=== PATIENT | female | born 1960 | race Two or more races ===

== ENCOUNTER → 2019-01-30 | Outpatient (CLI) | payer MEDICAID ==
[2019-01-30 15:39] LABS: APPEARANCE,URINE CLEAR; BILIRUBIN, URINE NEGATIVE (NEGATIVE); COLOR,URINE PALE YELLOW; GLUCOSE, URINE (UA) NEGATIVE (NEGATIVE); KETONES,URINE NEGATIVE (NEGATIVE); LEUKOCYTE ESTERASE ,URINE 3+ (NEGATIVE); NITRITE,URINE NEGATIVE (NEGATIVE); PH,URINE 6 (4.5-8.0); PROTEIN,URINE NEGATIVE (NEGATIVE); UROBILINOGEN,URINE NORMAL MG/DL (0.0-1.0)
[2019-01-30 15:42] LABS: BASOPHILS % (AUTO) 1.1 % (0.0-2.0); EOSINOPHILS % (AUTO) 1.5 % (0.0-3.0); HEMATOCRIT 38.6 % (37.0-47.0); HEMOGLOBIN 13.4 G/DL (12.0-16.0); LYMPHOCYTES % (AUTO) 33.8 % (20.0-45.0); MEAN CORPUSCULAR VOLUME 88 FL (80-99); NEUTROPHILS % (AUTO) 56.6 % (45.0-75.0); PLATELET COUNT 223 K/UL (150-450); RED CELL DISTRIBUTION WIDTH 10.6 % (11.6-14.8); WHITE BLOOD COUNT 5.8 K/UL (4.8-10.8)
[2019-01-30 16:02] LABS: ANION GAP 8 mmol/L (5-15); BLOOD UREA NITROGEN 17 mg/dL (7-18); CALCIUM 8.8 MG/DL (8.5-10.1); CARBON DIOXIDE 30 MMOL/L (21-32); CHLORIDE 102 MMOL/L (98-107); CREATININE 0.7 MG/DL (0.55-1.30); POTASSIUM 4.1 MMOL/L (3.5-5.1); SODIUM 140 MMOL/L (136-145)
--- NOTE | 2019-01-31 18:26 | Cardiology Report ---
APPROVED REPORT EKG Measurement Heart [id number] Normal sinus rhythm Normal ECG
== END | disposition home or self-care (01) ==
LOC: LAB 15:02
DX: C50.919 Malignant neoplasm of unspecified site of unspecified female breast (principal)
CPT/HCPCS: 36415; 80048; 81001; 85025; 85610; 85730; 87086; 93005

== ENCOUNTER 2019-02-21 09:36 | Inpatient (IN) | payer MEDICAID ==
--- NOTE | 2019-02-20 18:00 | Pre-op HX & Phy Repo 2 SIG ---
DATE OF ADMISSION: 02/21/2019 SCHEDULED FOR SURGERY: 02/21/2019 HISTORY OF PRESENT ILLNESS: The patient is a 58-year-old female in overall stable health, who presented in December of 2018 with a one month history of right breast mass and pain in the upper inner quadrant of the right breast. Mammogram revealed a large area of irregular calcifications spanning 4.7 cm in the central right posterior extending toward the subareolar tissues. Ultrasound revealed in the right breast at 2 o'clock, 3 cm from the nipple, a 4.3 x 2.5 x 0.8 cm mass. Core biopsy revealed invasive ductal carcinoma, poorly differentiated and ductal carcinoma in situ. The patient was estrogen receptor positive, progesterone receptor negative, HER2 negative, Ki-67 was high at 80%. MRI of the breast revealed extensive disease filling the upper inner quadrant of the right breast coming to within 5 mm from the nipple areolar complex. The patient was advised that the option of partial mastectomy and right axillary sentinel lymph node biopsy would have a significant risk of leaving positive margins and that is a modified radical mastectomy may be needed. The patient was seen in consultation by Oncology who recommended proceeding as a next step with the surgery and that the patient wished to proceed and was agreeable to mastectomy. Review of all of the x-rays indicated the need for right modified radical mastectomy. MEDICATIONS: Phenytoin 100 mg 4 mL oral suspension, omeprazole. ALLERGIES: None. OPERATIONS: None. REVIEW OF SYSTEMS: 6, para 6. Last menstrual period in 2012. PHYSICAL EXAMINATION: GENERAL: The patient is 5 feet 6 inches, 158 pounds. HEENT: Within normal limits. LUNGS: Clear. HEART: Regular rhythm. BREASTS: Small. There is a 5 cm mass filling the upper inner quadrant of the right breast near the periphery and extending to the nipple-areolar complex. ABDOMEN: Soft. PELVIC AND RECTAL: Per primary care. EXTREMITIES: Without edema. NEUROLOGIC: Physiologic. IMPRESSION: Invasive ductal carcinoma, poorly differentiated and ductal carcinoma in situ, right breast, extensive; estrogen receptor positive; progesterone receptor negative; HER2 negative; KI-67 80%. PLAN: Full discussion has been had with the patient regarding the nature of her condition, the nature of the surgery, indications, alternatives, options, and risks. She agrees to proceed with mastectomy including the risks of bleeding, infection, flap necrosis, need for additional procedures based on final pathology, the inclusion of lymph node biopsy and limited dissection with a mastectomy, need for drains, etc. All questions have been answered. She understands and agrees to proceed. Kael Ruiz M.D. DR: DOROTHY JOB#: [id number] CC:
[2019-02-21] VITALS (12 sets, daily range): BP systolic 98–127; BP diastolic 57–77
[~2019-02-21] VITALS: Ht 160 cm; Wt 70.3 kg
[2019-02-21 10:12] LABS: APPEARANCE,URINE CLEAR; BILIRUBIN, URINE NEGATIVE (NEGATIVE); COLOR,URINE PALE YELLOW; GLUCOSE, URINE (UA) NEGATIVE (NEGATIVE); KETONES,URINE NEGATIVE (NEGATIVE); LEUKOCYTE ESTERASE ,URINE 3+ (NEGATIVE); NITRITE,URINE NEGATIVE (NEGATIVE); PH,URINE 6.5 (4.5-8.0); PROTEIN,URINE NEGATIVE (NEGATIVE); UROBILINOGEN,URINE NORMAL MG/DL (0.0-1.0)
[2019-02-21] MEDS ORDERED: OMEPRAZOLE20 M2 ORAL (11:10)
[2019-02-21] MEDS ORDERED: BACTRIM DS TAB1 EAC1 ORAL (11:10)
[2019-02-21] MEDS ORDERED: PHENYTOIN SODI100 MG ORAL (11:10)
--- NOTE | 2019-02-21 11:47 | Pre-Procedure Note/Attestation ---
Pre-Procedure Note/Attestation Complete Prior to Procedure Planned Procedure: right Procedure Narrative: right modified radical mastectomy Indications for Procedure Pre-Operative Diagnosis: carcinoma right breast Attestation I attest that I discussed the nature of the procedure; its benefits; risks and complications; and alternatives (and the risks and benefits of such alternatives ), prior to the procedure, with the patient (or the patient's legal claim service representative). I attest that, if there was a reasonable possibility of needing a blood transfusion, the patient (or the patient's legal claim service representative) was given the [facility] standardized written summary, pursuant to the [place] Blood Safety Act ([place] Health and Safety Code # 1645, as amended). I attest that I re-evaluated the patient just prior to the surgery and that there has been no change in the patient's H&P, except as documented below:none Kael Ruiz MD Feb 21, 2019 11:47
[2019-02-21] MEDS ORDERED: Midazolam 2mg/2ml Inj ONE (12:02)
[2019-02-21] MEDS ORDERED: Lidocaine 1% MPF 10mg/ml 5ml ONE (12:02)
[2019-02-21] MEDS ORDERED: fentaNYL 100 mcg/2 mL IV ONE (12:02)
[2019-02-21] MEDS ORDERED: Propofol 200mg/20ml IV ONE (12:02)
[2019-02-21] MEDS ORDERED: Lidocaine 1% 10mg/ml/Epi 0.005mg/ml 30ml vial INJ ONE (12:03)
[2019-02-21] MEDS ORDERED: Bupivacaine w/Epi 0.5% 30ml Vial INJ ONE (12:03)
[2019-02-21] MEDS ORDERED: Zemuron 50mg/5ml Inj IV ONE (12:04)
[2019-02-21] MEDS ORDERED: Succinylcholine 20mg/ml 10ml vial ONE (12:04)
[2019-02-21] MEDS ORDERED: Neostigmine 1mg/ml 10ml Inj ONE (12:30)
[2019-02-21] MEDS ORDERED: Sterile Water Irrig 1000ml IRRIG ONE ×2 (12:30→13:00)
[2019-02-21] MEDS ORDERED: LR 1000ml ONE (12:30)
--- NOTE | 2019-02-21 12:44 | Anethesia Preoperative Eval ---
Anesthesia Pre-op PMH/ROS General Date of Evaluation: Feb 21, 2019 Time of Evaluation: 12:42 Anesthesiologist: Demetris ASA Score: ASA 2 Mallampati Score Class I : Soft palate, uvula, fauces, pillars visible Class II: Soft palate, uvula, fauces visible Class III: Soft palate, base of uvula visible Class IV: Only hard plate visible Mallampati Classification: Class II Surgeon: Joseph Diagnosis: R breast CA Surgical Procedure: R mastectomy Anesthesia History: none Family History: no anesthesia problems Allergies: Coded Allergies: No Known Allergies (Unverified , 02/21/19) Medications: see eMAR Patient NPO?: Yes Past Medical History Cardiovascular: Denies: HTN, CAD, RI, valve dz, arrhythmia, other Pulmonary: Denies: asthma, COPD, MALLORY, other Gastrointestinal/Genitourinary: Reports: GERD; Denies: CRI, ESRD, other Neurologic/Psychiatric: Reports: other - h/o seizers stable on dilantyn; Denies: dementia, CVA, depression/anxiety, TIA Endocrine: Denies: DM, hypothyroidism, steroids, other HEENT: Denies: cataract (L), cataract (R), glaucoma, COMANCHE (L), COMANCHE (R), other Hematology/Immune: Denies: anemia, DVT, bleeding disorder, other Musculoskeletal/Integumentary: Denies: OA, RA, DJD, DDD, edema, other PMH Narrative: as above PSxH Narrative: C section hysterectomy, Anesthesia Pre-op Phys. Exam Physician Exam Last Vital Signs Date Time Temp Pulse Resp B/P (MAP) Pulse Ox O2 Delivery O2 Flow Rate FiO2 02/21/19 10:26 Room Air 02/21/19 10:19 97.8 69 18 127/77 98 Constitutional: NAD Neurologic: CN 2-12 intact Cardiovascular: RRR, no M/R/G Respiratory: CTA Gastrointestinal: S/NT/ND Airway Exam Mallampati Score: Class II MO: limited Neck: stiff ROM: limited Teeth: missing Dentures: no upper, no lower Anesthesia Pre-op A/P Labs see chart Studies Pre-op Studies: EKG - NSR Risk Assessment & Plan Assessment: ASA 2 Plan: GA with ETT Status Change Before Surgery: No Pre-Antibiotics Drug: Ancef 1gr. Given Within 1 Hr of Incision: Yes Time Given: 13:10 Krishan Willson MD Feb 21, 2019 12:44
[2019-02-21] MEDS ORDERED: Glycopyrrolate 0.2mg/ml 1ml Vial ONE (13:28)
[2019-02-21] MEDS ORDERED: Sodium Chloride 10ml vial INJ ONE (13:28)
[2019-02-21] MEDS ORDERED: Morphine Sulfate 10mg/ml Inj ONE (13:28)
[2019-02-21] MEDS ORDERED: Ketorolac 30mg Inj ONE (13:28)
[2019-02-21] MEDS ORDERED: LR 1000ml 1,000 ML IVLG SCH (13:35)
[2019-02-21] MEDS ORDERED: Hydromorphone 0.5mg/0.5ml inj IVP PRN (13:45)
[2019-02-21] MEDS ORDERED: Acetaminophen (Non formulary) 100 ML IV ONE (13:45)
[2019-02-21] MEDS ORDERED: Ketorolac 30mg Inj IV PRN (13:45)
[2019-02-21] MEDS ORDERED: Metoclopramide 10mg/2ml Inj IVP PRN (13:45)
[2019-02-21] MEDS ORDERED: HYDROmorphone 1mg/ml Carpuject SUBQ PRN (14:45)
--- NOTE | 2019-02-21 14:48 | Brief Operative Note ---
Immediate Post Operative Note Operative Note Pre-op Diagnosis: carcinoma right breast Procedure: right modified radical mastectomy Post-op Diagnosis: same Post-op Diagnosis: same as pre-op Findings: consistent w/pre-op dx studies Surgeon: antionette Anesthesiologist: velia Anesthesia: general Specimen: yes - right breast and axillary lymph node Complications: none Condition: stable Fluids: see anesthesia record Estimated Blood Loss: volume - 100cc Implant(s) used?: No Kael Ruiz MD Feb 21, 2019 14:48
--- NOTE | 2019-02-21 14:54 | Immediate Post-Op Evaluation ---
Immediate Post-Op Evalulation Immediate Post-Op Evalulation Procedure: R modified radical mastectomy Date of Evaluation: Feb 21, 2019 Time of Evaluation: 14:53 IV Fluids: 1000 Blood Products: none Estimated Blood Loss: 100 Urinary Output: none Blood Pressure Systolic: 113 Blood Pressure Diastolic: 61 Pulse Rate: 68 Respiratory Rate: 20 O2 Sat by Pulse Oximetry: 99 Temperature (Fahrenheit): 97.4 Pain Score (1-10): 1 Nausea: No Vomiting: No Complications none Patient Status: reacts, patent, extubated, none Hydration Status: adequate Krishan Willson MD Feb 21, 2019 14:54
--- NOTE | 2019-02-21 16:40 | NUR ---
NURSE NOTES: received pt from surgery. Received report MALACHI Hoyt. On room air. BP 110/67, WI 75, T 98.3, SpO2 98. Dressing intact on the surgical site with 2 YENNY draining dark red fluid. IV on UA 20g running lactate ringer. Family at the bedside. Belongings all accounted for. Orientation on the unit was given. Bed in the lowest and locked. Call light within reach. Will continue to monitor
[2019-02-21] MEDS: D5 1/2NS w/KCl 20mEq 1,000 ML IV SCH (18:38)
[2019-02-21] MEDS: ceFAZolin sod 1 GM in D5W 55 ML IV SCH (18:38)
--- NOTE | 2019-02-21 19:30 | NUR ---
NURSE NOTES: Received pt in bed, AOx4, Niuean speaking only, son at bedside used as business transformation manager. Denies any pain, no distress noted. S/P Right modified mastectomy, surgical dressing C/D/I, JPs x [address] draining serasangenous drainage. Side rails padded for seizure precaution. Bed in lowest position and locked, side rails up x 2, call light within reach. Will continue to monitor.
--- NOTE | 2019-02-21 19:59 | NUR ---
HAND-OFF: Report given to MALACHI Maravilla.
--- NOTE | 2019-02-21 20:00 | Operative Note - Dictated ---
DATE OF OPERATION: 02/21/2019 SURGEON: Kael Ruiz M.D. NUTRITION SERVICES ASSISTANT: None. ANESTHESIOLOGIST: Krishan Willson M.D. TYPE OF ANESTHESIA: General. PREOPERATIVE DIAGNOSIS: Invasive ductal carcinoma, right breast. POSTOPERATIVE DIAGNOSIS: Invasive ductal carcinoma, right breast. OPERATION PERFORMED: Right modified radical mastectomy. DESCRIPTION OF PROCEDURE: The patient was taken to the operating room and under general anesthesia with sequential compression device stockings in place, she was prepped and draped in usual fashion. A transversely oriented elliptical incision incorporating the nipple-areolar complex was made achieving hemostasis with cautery. Flaps were dissected to the sternum medially towards the clavicle superiorly, costal margin inferiorly, and latissimus dorsi laterally. The breast was resected from the chest wall using the Thunderbeat electrosurgical device and regular cautery for hemostasis. The lower level axillary dissection was performed with the Thunderbeat and then one additional para node was removed. The field was irrigated and hemostasis carefully achieved with cautery through separate stab incisions inferiorly. Two large flat Ramiro-Jasmine drains were placed, one onto the flaps and one into the axillae each sutured to the skin with 2-0 nylon skin suture. After ascertaining the hemostasis was secure, the incision was closed with interrupted 2-0 Vicryl deep dermal subcutaneous sutures followed by panchito. Dry sterile dressings were applied. Final sponge, needle counts were correct. The patient tolerated the procedure well, left the operating room in good condition. Pathology inspection revealed the margins to be satisfactory. Kael Ruiz M.D. DR: JAY JOB#: [id number] CC:
[2019-02-21] MEDS: HYDROcodone/Acetamin 5/325 tab ORAL PRN (22:35)
[2019-02-22] VITALS: BP 99/65
[2019-02-22] MEDS: ceFAZolin sod 1 GM in D5W 55 ML IV SCH (01:36)
[2019-02-22] MEDS: D5 1/2NS w/KCl 20mEq 1,000 ML IV SCH (03:51)
[2019-02-22 04:00] VITALS: BP 101/63
[2019-02-22 06:52] LABS: ANION GAP 8 mmol/L (5-15); BLOOD UREA NITROGEN 10 mg/dL (7-18); CALCIUM 8.6 MG/DL (8.5-10.1); CARBON DIOXIDE 25 MMOL/L (21-32); CHLORIDE 105 MMOL/L (98-107); CREATININE 0.7 MG/DL (0.55-1.30); POTASSIUM 4.1 MMOL/L (3.5-5.1); SODIUM 138 MMOL/L (136-145)
[2019-02-22 07:04] LABS: BASOPHILS % (AUTO) 0.5 % (0.0-2.0); EOSINOPHILS % (AUTO) 0.5 % (0.0-3.0); HEMATOCRIT 33.5 % (37.0-47.0); HEMOGLOBIN 11.4 G/DL (12.0-16.0); LYMPHOCYTES % (AUTO) 15.4 % (20.0-45.0); MEAN CORPUSCULAR VOLUME 90 FL (80-99); NEUTROPHILS % (AUTO) 77.6 % (45.0-75.0); PLATELET COUNT 159 K/UL (150-450); RED BLOOD COUNT 3.73 M/UL (4.20-5.40); RED CELL DISTRIBUTION WIDTH 11.3 % (11.6-14.8); WHITE BLOOD COUNT 6.6 K/UL (4.8-10.8)
--- NOTE | 2019-02-22 07:25 | NUR ---
HAND-OFF: Report given to MALACHI [place]. Pt in stable condition.
--- NOTE | 2019-02-22 07:30 | NUR ---
NURSE NOTES: Report received from Taiwo Griffin RN, rounds made. Patient Citizen Of [place] speaking, alert, oriented x4 calm. No distress on RA. Denies pain/NV. Right breast dressing CDI, x2 YENNY noted, with serosanguineous output. RUE CMS+, skin warm, wiggles, pulses palpable. IVF (D5 1/2 + 20KCL at 100 ml/hr) infusing to LFA, site asymptomatic. Bilateral SCDs on. Call light in reach, bed in lowest position, will continue to monitor.
--- NOTE | 2019-02-22 07:41 | NUR ---
HAND-OFF: Report given to MALACHI Williamson. Pt in stable condition.
[2019-02-22 08:00] VITALS: BP 94/62
--- NOTE | 2019-02-22 09:33 | 48 Hour Post Anesthesia Eval ---
Post Anesthesia Evaluation Procedure: R modified radical mastectomy Date of Evaluation: Feb 22, 2019 Time of Evaluation: 09:29 Blood Pressure Systolic: 106 0: 52 Pulse Rate: 64 Respiratory Rate: 20 Temperature (Fahrenheit): 97.6 O2 Sat by Pulse Oximetry: 98 Airway: patent Nausea: No Vomiting: No Pain Intensity: 2 Hydration Status: adequate Cardiopulmonary Status: stable Mental Status/LOC: patient returned to baseline Follow-up Care/Observations: n/a Post-Anesthesia Complications: none Follow-up care needed: ready to discharge Krishan Willson MD Feb 22, 2019 09:32
[2019-02-22 12:00] VITALS: BP 112/71
--- NOTE | 2019-02-22 12:17 | General Progress Note ---
Progress Note Progress Note AVSS Required Dilaudid SQ overnight. Eating and ambulating this AM Right mastectomy incision clean YENNY drains 20+35cc sanguinous overnight Imp. Stable Plan: teach patient care of YENNY drains anticipate discharge tomorrow Kael Ruiz MD Feb 22, 2019 12:17
[2019-02-22] MEDS: HYDROcodone/Acetamin 5/325 tab ORAL PRN ×2 (14:04→20:47)
[2019-02-22 16:00] VITALS: BP 108/66
--- NOTE | 2019-02-22 18:00 | NUR ---
NURSE NOTES: Encouraged IS throughout shift, patient demonstrated, needs further reinforcement. Instructed/demonstrated on YENNY care, emptying and measuring output. Son at bedside. Patient verbalized understanding. Dressing changed by Dr. Ruiz today, remains CDI.
--- NOTE | 2019-02-22 19:45 | NUR ---
NURSE NOTES: Received report from MALACHI Williamson. Patient ambulating in hallway with family. Steady gait, no dizziness.
--- NOTE | 2019-02-22 19:50 | NUR ---
HAND-OFF: Report given to Yumi LY. YENNY Outputs: 1=40 ml 2=40 ml
[2019-02-22 20:00] VITALS: BP 109/61
--- NOTE | 2019-02-22 20:30 | NUR ---
NURSE NOTES: Patient in bed, bed in low position, locked, side rails up x2, call light within reach. Patient states has some pain after activity, will medicate as ordered. Right chest dressing dry and intact, YENNY x2 patent, draining serousanguineous fluid. Reviewed care of JPs with patient. Patient verbalizes understanding.
[2019-02-22] MEDS: Phenytoin 100mg cap ORAL SCH (22:43)
[2019-02-23] VITALS: BP 99/58
[2019-02-23 04:00] VITALS: BP 103/63
--- NOTE | 2019-02-23 06:15 | NUR ---
NURSE NOTES: Patient instructed in emptying, measuring and recording of YENNY output, returned demonstration. Needs reinforcement. JP1: 30 cc JP2: 30 cc Patient denies pain at this time. Has refused SCDs. Encouraged to call as needed, no distress noted.
--- NOTE | 2019-02-23 07:05 | NUR ---
NURSE NOTES: Report received from Yumi LY, rounds made. Patient sleeping in semi-fowlers position in bed. No distress on RA. YENNY x2 in place. LFA heplock intact. Bilateral SCDs off. Seizure pads in place. Plans for DC today. Call light in reach, bed in lowest position, will continue to monitor.
--- NOTE | 2019-02-23 07:09 | NUR ---
HAND-OFF: Report given to MALACHI Williamson. No distress noted.
[2019-02-23 08:00] VITALS: BP 108/71
--- NOTE | 2019-02-23 08:15 | NUR ---
NURSE NOTES: Patient up ambulating in halls, gait steady. Denies need for pain medication. Will continue to monitor.
[2019-02-23] MEDS: Phenytoin 100mg cap ORAL SCH (10:06)
--- NOTE | 2019-02-23 10:36 | General Progress Note ---
Progress Note Progress Note aVSS doing well. Able to care for YENNY drains incision clean JPs 30+30 overnight Imp. Stable Plan: discharge f/u office 02/26 Rx [place] #[id number] Kael Ruiz MD Feb 23, 2019 10:35
[2019-02-23] MEDS ORDERED: NORCO 5-325 TA1 EACH ORAL (11:44)
[2019-02-23 12:00] VITALS: BP 132/83
--- NOTE | 2019-02-23 12:13 | NUR ---
NURSE NOTES: Discharge instructions and prescription x1 reviewed with patient and family (translated by family). Patient demonstrated proper handwashing prior and after, YENNY care, emptying, compressing bulbs/closing, reading and recording output, dressing change. Supplies provided: 4x4 gauze, paper tape, basin, specimen cups labeled x2 and recording paper for outputs. IV heplock discontinued, no active bleeding. All belongings, discharge instructions, supplies and prescription x1 sent home with patient. Ambulated down to lobby with family and Merlin KAUR, in stable condition. Discharged home at 1213.
--- NOTE | 2019-02-25 12:18 | Discharge Summary ---
Discharge Summary Hospital Course Date of Admission Feb 21, 2019 at 17:27 Date of Discharge Feb 23, 2019 at 12:30 Admitting Diagnosis Right breast carcinoma Reason for Hospitalization: Elective surgery HPI Evon soto a 58 year old female was admitted on Feb 21, 2019 at 17:27 for Carcinoma Right Breast 58-year-old female in overall stable health, presented in December of 2018 with a one month history of right breast mass and pain in the upper inner quadrant of the right breast. Mammogram revealed a large area of irregular calcifications spanning 4.7 cm in the central right posterior extending toward the subareolar tissues. Ultrasound revealed in the right breast at 2 o'clock, 3 cm from the nipple, a 4.3 x 2.5 x 0.8 cm mass. Core biopsy revealed invasive ductal carcinoma, poorly differentiated and ductal carcinoma in situ. The patient was estrogen receptor positive, progesterone receptor negative, HER2 negative, Ki-67 was high at 80%. MRI of the breast revealed extensive disease filling the upper inner quadrant of the right breast coming to within 5 mm from the nipple areolar complex. The patient was advised that the option of partial mastectomy and right axillary sentinel lymph node biopsy would have a significant risk of leaving positive margins and that a modified radical mastectomy may be needed. The patient was seen in consultation by Oncologist who recommended proceeding as a next step with the surgery and that the patient wished to proceed and was agreeable to mastectomy. Review of all of images indicated the need for right modified radical mastectomy. Procedures by Dr Ruiz 02/21/19 s/p Right modified radical mastectomy Hospital Course status post surgery course of recovery uneventful initially IV fluids s/p perioperative antibiotics right mastectomy incision clean two YENNY drain with serosanguineous drainage, output was closely monitored patient was taught how to care of YENNY drains at home and was learned how to do it incision remained clean. pain management addressed ; pain controlled remained hemodynamically stable fall precautions maintained; safe for ambulation tolerated diet , IV fluids discontinued GI prophylaxis provided antiemetics were on board as needed blood pressure was managed with clonidine and remained stable seizure precautions maintained, Dilantin continued, no evidence of seizure activity while in the hospital patient was stable for discharge discharge instructions provided follow up with surgeon in the office on 02/26/19 prescription for [place] provided. follow up with pathology results FINAL DIAGNOSES Invasive ductal carcinoma, right breast. s/p right modified radical mastectomy Discharge Medications Continued Medications: Hydrocodone Bit/Acetaminophen 5-325* ([place] 5-325*) 1 Each Tablet 1 TAB ORAL Q4H PRN for For Pain, #20 TAB 0 Refills (This prescription has been renewed) Omeprazole (Omeprazole) 20 Mg Capsule.dr 20 MG ORAL DAILY, CAP (This prescription has been renewed) Phenytoin Sodium Extended* (Phenytoin Sodium Extended*) 100 Mg Capsule 100 MG ORAL TWICE A DAY, #60 CAP 0 Refills (This prescription has been renewed) Discharge Condition Upon Discharge: stable Discharge Disposition Patient was discharged home Discharge Instructions Discharge Instructions Special Instructions I have been assigned to complete a D/C Summary on this account. I was not involved in the patient management Bessie Menezes NP Feb 25, 2019 12:18
== END 2019-02-23 12:30 | disposition home or self-care (01) | DRG 362 ==
LOC: SUR 09:36 → 3E 17:27
PROC: 07T50ZZ Resection of Right Axillary Lymphatic, Open Approach (ICD-10-PCS; 2019-02-21)
PROC: 0HTT0ZZ Resection of Right Breast, Open Approach (ICD-10-PCS; principal; 2019-02-21 12:30)
DX: C50.811 Malignant neoplasm of overlapping sites of right female breast (principal); Z17.0 Estrogen receptor positive status [ER+]
CPT/HCPCS: 36415; 80048; 81001; 81003; 85025; 85610; 85730; 87081; 87086; 93005; 94003; 94150; J2250; J2405; J2710